=== PATIENT | female | born 1980 | race Hispanic/Latino ===

== ENCOUNTER → 2019-06-20 | Outpatient (CLI) | payer OTHER ==
[~2019-06-20] MED LIST: ABILIFY5 MG PO; BUPROPION HCL150 M2 PO; MULTI-VITAMIN1 EACH PO; NORCO 7.5-3251 EACH PO; PROZAC20 MG PO; VITAMIN B-121000 MCG PO; WELLBUTRIN SR100 MG PO
--- NOTE | 2019-06-20 16:17 | Diagnostic Imaging Report ---
Exam: Lumbar spine MRI without IV contrast History: Low back pain, lumbar spondylosis with radiculopathy. Comparison studies: None Technique: Sagittal and axial T2 , sagittal T1 and IR, axial spin density oblique, coronal T2. Intravenous contrast: None Findings: Number of lumbar vertebral bodies: 5. Alignment: Normal lordosis. No scoliosis. Soft tissues: No T2 hyperintense inflammatory changes. Paraspinal muscles: No signal abnormalities. Well-preserved. No atrophic changes Lower thoracic cord: Normal in signal and morphology. The tip of the conus is at T12-L1. Cauda equina: No masses. No arachnoiditis. Vertebrae: No compression fractures, infection or neoplasm. Degenerative changes: L1-L2: No abnormalities L2-L3: No abnormalities L3-L4: No abnormalities L4-L5: Symmetric disc bulge, thickened ligamentum flavum and mild facet arthrosis without significant canal or foraminal stenosis L5-S1: Moderately degenerated disc with loss of disc height and loss of T2 disc signal. Reactive degenerative endplate changes are present which are predominantly fatty-replaced with only minimal endplate edema. Minimal Grade 1 retrolisthesis of L5 on S1 with uncovered disc/disc osteophyte complex is with superimposed, superiorly migrated, 19 mm x 10 mm x 13 mm (SI x AP x TV) left subarticular disc extrusion/possible sequestered disc fragment which abuts the left L5 subarticular nerve root just as it enters the left L5-S1 neural foramina and posterior displaces the left S1 nerve root within the thecal. Disc osteophyte complex asymmetric to the right results in mild right foraminal stenosis. Patent left foramen IMPRESSION: Moderately degenerated L5-S1 disc with large superiorly migrated left subarticular disc extrusion/possible sequestered disc fragment which abuts the left L5 nerve root and posteriorly displaces the left S1 nerve root. Signed by: Dr. Matteo Gonzalez M.D. on 06/20/2019 4:13 PM
== END ==
LOC: MRI 06-04 14:40
PROVIDERS: ATTEND Specialist
DX: M47.27 Other spondylosis with radiculopathy, lumbosacral region (principal)
CPT/HCPCS: 72148

== ENCOUNTER 2019-06-28 07:55 | Observation (INO) | payer OTHER ==
[2019-06-26 15:22] LABS: BASOPHILS % 0.7 % (0.0-1.0); EOSINOPHILS # (AUTO) 0.1 (0.0-0.4); EOSINOPHILS % 2.1 % (0.0-6.0); HEMATOCRIT 37.5 % (34.2-44.1); HEMOGLOBIN 12.2 g/dL (12.0-16.0); LYMPHOCYTES # (AUTO) 1.8 (1.0-3.2); LYMPHOCYTES % 29.3 % (18.0-39.1); MEAN CORPUSCULAR HEMOGLOBIN 26.9 pg (28-32); MEAN CORPUSCULAR HGB CONC 32.5 g/dL (31-35); MEAN CORPUSCULAR VOLUME 82.8 fL (81-99); MONOCYTES # (AUTO) 0.4 (0.2-0.8); MONOCYTES % 5.8 % (4.4-11.3); NEUTROPHILS # (AUTO) 3.8 (2.1-6.9); NEUTROPHILS % 61.6 % (38.7-80.0); PLATELET COUNT 296 x10e3/uL (140-360); RED BLOOD COUNT 4.53 x10e6/uL (3.6-5.1); RED CELL DISTRIBUTION WIDTH 13.8 % (11.7-14.4)
[2019-06-26 15:31] LABS: INR 0.97; PROTHROMBIN TIME 13.4 seconds (11.9-14.5)
[2019-06-26 15:39] LABS: ANION GAP 15.8 mmol/L (8-16); BLOOD UREA NITROGEN 12 mg/dL (7-26); BUN/CREATININE RATIO 16 (6-25); CARBON DIOXIDE 21 mmol/L (22-29); CHLORIDE 102 mmol/L (98-107); CREATININE, SERUM 0.77 mg/dL (0.57-1.11); EST GLOMERULAR FILTRATION RATE > 60 ML/MIN (60-); GLUCOSE 79 mg/dL (74-118); POTASSIUM 3.8 mmol/L (3.5-5.1); SODIUM 135 mmol/L (136-145)
--- NOTE | 2019-06-26 16:01 | Diagnostic Imaging Report ---
EXAMINATION: CHEST 2 VIEWS INDICATION: Pre-operative COMPARISON: None FINDINGS: LINES/TUBES:None LUNGS:The lungs are well-inflated. No focal consolidation or pulmonary edema. PLEURA:No pleural effusion or pneumothorax. MEDIASTINUM:The cardiomediastinal silhouette appears normal in size and shape. BONES/SOFT TISSUES:No acute osseous injury. ABDOMEN:No free air under the diaphragm. IMPRESSION: No focal pneumonia or pulmonary edema. Signed by: Srikanth Muniz MD on 06/26/2019 3:58 PM
[~2019-06-28] VITALS: Ht 165.1 cm; Wt 92.5 kg
[~2019-06-28 07:55] MED LIST changes: +ACETAMINOPHEN 1000 MG/100 ML 100 ML IV ONE; -BUPROPION HCL150 M2 PO; +IBUPROFEN 800MG/ 250ML 250 ML IV ONE; +LIDOCAINE HCL (LTA) 4 ML SOLN ONE; -NORCO 7.5-3251 EACH PO
[2019-06-28] MEDS ORDERED: CEFAZOLIN SOD 1 GM/NS 50ML 100 ML IV ONE (08:25)
--- OUTSIDE RECORDS SUMMARY | 2019-06-28 08:32 | XMS REPORT ---
Author Author [facility] Address Unknown Phone Unavailable Care Team Providers Care Special Librarian Name Role Phone LOPEZ ANDERSON Unavailable Unavailable MINERVA BRUNSON Unavailable Unavailable Problems This patient has no known problems. Allergies, Adverse Reactions, Alerts This patient has no known allergies or adverse reactions. Medications This patient has no known medications. Results Test Description Test Time Test Comments Text Results Atomic Results Result Comments CHEST 2 VIEWS 2019-06-26 15:57:00 [place] [address] Patient Name: RAH MYERS MR #: [id number] : 1980 Age/Sex: 38/F Req #: [id number] Adm Physician: Ordered by: LOPEZ ANDERSON MD Report #: [id number] Location: OR Room/Bed: Procedure: [id number] DX/CHEST 2 VIEWS Exam Date: 06/26/19 Exam Time: 1521 REPORT STATUS: Signed EXAMINATION: CHEST 2 VIEWS INDICATION: Pre-operative COMPARISON: None FINDINGS: LINES/TUBES:None LUNGS:The lungs are well-inflated. No focal consolidation or pulmonary edema. PLEURA:No pleural effusion or pneumothorax. MEDIASTINUM:The cardiomediastinal silhouette appears normal in size and shape. BONES/SOFT TISSUES:No acute osseous injury. ABDOMEN:No free air under the diaphragm. IMPRESSION: No focal pneumonia or pulmonary edema. Signed by: Stephanie Tyson MD on 06/26/2019 3:58 PM Dictated By: STEPHANIE TYSON MD 57 Transcribed By: DARCY on 06/26/191557 COPY TO: LOPEZ ANDERSON MD MRI SPINE LUMBAR WO 2019-06-20 15:58:00 [place] [address] Patient Name: RAH MYERS MR #: [id number] : 1980 Age/Sex: 38/F Req #: [id number] Adm Physician: Ordered by: MINERVA BRUNSON MD Report #: [id number] Location: MRI Room/Bed: Procedure: [id number] MRI/MRI SPINE LUMBAR WO Exam Date: Exam Time: REPORT STATUS: Signed Exam: Lumbar spine MRI without IV contrast History: Low back pain, lumbar spondylosis with radiculopathy. Comparison studies: None Technique: Sagittal and axial T2 , sagittal T1 and IR, axial spin density oblique, coronal T2. Intravenous contrast: None Findings: Number of lumbar vertebral bodies: 5. Alignment: Normal lordosis. No scoliosis. Soft tissues: No T2 hyperintense inflammatory changes. Paraspinal muscles: No signal abnormalities. Well-preserved. No atrophic changes Lower thoracic cord: Normal in signal and morphology. The tip of the conus is at T12-L1. Cauda equina: No masses. No arachnoiditis. Vertebrae: No compression fractures, infection or neoplasm. Degenerative changes: L1-L2: No abnormalities L2-L3: No abnormalities L3-L4: No abnormalities L4-L5: Symmetric disc bulge, thickened ligamentum flavum and mild facet arthrosis without significant canal or foraminal stenosis L5-S1: Moderately degenerated disc with loss of disc height and loss of T2 disc signal. Reactive degenerative endplate changes are present which are predominantly fatty-replaced with only minimal endplate edema. Minimal Grade 1 retrolisthesis of L5 on S1 with uncovered disc/disc osteophyte complex is with superimposed, superiorly migrated, 19 mm x 10 mm x 13 mm (SI x AP x TV) left subarticular disc extrusion/possible sequestered disc fragment which abuts the left L5 subarticular nerve root just as it enters the left L5-S1 neural foramina and posterior displaces the left S1 nerve root within the thecal. Disc osteophyte complex asymmetric to the right results in mild right foraminal stenosis. Patent left foramen IMPRESSION: Moderately degenerated L5- S1 disc with large superiorly migrated left subarticular disc extrusion/possib le sequestered disc fragment which abuts the left L5 nerve root and posteriorly displaces the left S1 nerve root. Signed by: Dr. Minerva Gonzalez M.D. on 06/20/2019 4:13 PM Dictated By: MINERVA GONZALEZ MD [id number] Transcribed By: DARCY on 06/20/19 1613 COPY TO: MINERVA BRUNSON MD
[2019-06-28] MEDS ORDERED: BUPIVACAINE 0.5%/EPI 30 ML SDV INJ ONE (09:38)
[2019-06-28] MEDS ORDERED: THROMBIN FOR SOLN 5,000 UNIT VIAL ONE (09:38)
[2019-06-28] MEDS ORDERED: BACITRACIN 50,000 UNIT VIAL ONE (09:39)
[2019-06-28] MEDS: LACTATED RINGER'S 1,000 ML IV SCH (12:24)
[2019-06-28] MEDS ORDERED: ACETAMINOPHEN 325 MG TAB PO PRN (12:30)
[2019-06-28] MEDS ORDERED: HYDROMORPHONE 2MG/ML 2 MG/ML ML IV PRN (12:30)
[2019-06-28] MEDS ORDERED: ONDANSETRON HCL INJ 2MG/ML 2ML 2 MG/ML VIAL IV PRN (12:30)
[2019-06-28] MEDS ORDERED: MORPHINE SULFATE INJ 4 MG/ML INJ 1ML IM PRN (12:30)
[2019-06-28] MEDS ORDERED: MAGNESIUM/ALUMINUM/SIMETHICONE 30 ML UDC PO PRN (12:30)
[2019-06-28] MEDS ORDERED: CARISOPRODOL 350 MG TAB PO PRN (12:30)
[2019-06-28] MEDS ORDERED: ZOLPIDEM TARTRATE 5 MG TAB PO PRN (12:30)
[2019-06-28] MEDS ORDERED: PROMETHAZINE HCL (IM) 25 MG/ML VIAL IM PRN (12:30)
--- NOTE | 2019-06-28 14:01 | Operative Report ---
DATE OF PROCEDURE: 06/28/2019 SURGEON: Joaquin De Jesus MD PREOPERATIVE DIAGNOSIS: Left L5-S1 disk herniation with superior migration of extruded disk fragment with severe radiculopathy, M51.17. POSTOPERATIVE DIAGNOSIS: Left L5-S1 disk herniation with superior migration of extruded disk fragment with severe radiculopathy, M51.17. PROCEDURES: Left L5-S1 laminotomy, medial facetectomy, and microsurgical diskectomy, 5[address]. ANESTHESIA: General. INDICATIONS: The patient is a woman, who presents with a very large left L5-S1 disk herniation with substantial superior migration of the extruded disk fragment producing left L5 and S1 radiculopathies. She was in the operating room for microsurgical decompression of the L5 and S1 nerve roots. PROCEDURE IN DETAIL: After induction of anesthesia, the patient was placed on the operating table in prone position over Alexei frame. Lumbar region was prepped and draped in sterile fashion. A preoperative x-ray was obtained. A small midline incision was created, lumbar fascia was opened to the left of midline and a subperiosteal dissection was carried out to expose the left-sided L5 and S1 lamina and medial aspect of the facet joint. A second x-ray confirmed correct localization. The operating microscope was brought in. A high-speed drill equipped with hima bur was used to drill the inferior 2/3 of the lamina of L5 and the medial rim of the inferior articular process of L5. The ligamentum flavum was resected. The dural sac and the S1 traversing nerve root were exposed. The herniated disk material immediately came into view above the S1 nerve root and extending to the region of the axilla of the L5 nerve roots. The herniated disk material was mobilized with a micro ball probe and removed several large fragments of disk from the ventral epidural space until both the L5 and S1 nerve roots were fully exposed and decompressed. The opening into the annulus of the disk was slightly enlarged with a #11 blade and the loose contents of the L5-S1 disk were evacuated with a micro pituitary rongeur. Excellent decompression was thus achieved. The wound was copiously irrigated with bacitracin solution. Meticulous hemostasis was secured. Retractor was removed. The dura was overlaid with a piece of fat obtained from the subcutaneous compartment. The lumbar fascia was closed with 0 Vicryl suture. Subcutaneous layer was closed with 2-0 Vicryl sutures. The skin was closed with 3-0 Monocryl sutures in subcuticular fashion. Steri-Strips and dressing were applied. The patient was awakened, extubated, and taken to postanesthesia care unit in stable condition. No intraoperative complications were encountered. Estimated blood loss was 10 mL. Joaquin De Jesus MD PP/YASMIN /[id number]
[2019-06-28 16:30] VITALS: BP 131/89
[2019-06-28 17:14] VITALS: BP 131/89
[2019-06-28 17:18] VITALS: BP 131/89
[2019-06-28] MEDS: OXYCODONE/ACETAMINOPHEN 5-325 1 EACH TABLET PO PRN (17:37)
[2019-06-28] MEDS: CEFAZOLIN SOD 1 GM/NS 50ML 50 ML IV SCH (19:18)
[2019-06-28] MEDS ORDERED: MIDAZOLAM HCL 2 MG/2 ML VIAL ONE (19:43)
[2019-06-28] MEDS ORDERED: FENTANYL CITRATE/PF 100MCG/2 ML INJ ONE (19:43)
[2019-06-28 20:00] VITALS: BP 118/63
--- NOTE | 2019-06-28 20:00 | NUR ---
RECEIVED PT SITTING ON THE CHAIR . RT HAND 20G LR RUNNING AT 120CC/HR .CALL LIGHT WITH IN REACH DRESSING AT THE BACK .CONTINUE TO MONITOR
[2019-06-28] MEDS ORDERED: NEOSTIGMINE 5 MG/5ML SYR ONE (20:15)
[2019-06-28] MEDS ORDERED: PROPOFOL IV EMULSION 10 MG/ML 20 ML VIAL ONE (20:15)
[2019-06-28] MEDS ORDERED: DEXAMETHASONE SOD PHOS INJ 4 MG/ML VIAL ONE (20:15)
[2019-06-28] MEDS ORDERED: ONDANSETRON HCL INJ 2MG/ML 2ML 2 MG/ML VIAL ONE (20:15)
[2019-06-28] MEDS ORDERED: LIDOCAINE HCL 2% LOCAL INJ 5 ML SDV VIAL INJ ONE (20:15)
[2019-06-28] MEDS ORDERED: LIDOCAINE HCL 2% JELLY 5 ML TUBE ONE (20:15)
[2019-06-28] MEDS ORDERED: ROCURONIUM BROMIDE 10 MG/ML 5ML VIAL ONE (20:15)
[2019-06-28] MEDS ORDERED: GLYCOPYRROLATE INJ 1MG/ 5 ML SYR ONE (20:15)
[2019-06-28] MEDS ORDERED: SEVOFLURANE INHAL SOLN 250 ML PEN BTL ONE (20:15)
[2019-06-28 20:49] VITALS: BP 131/89
[2019-06-29] VITALS: BP 103/55
[2019-06-29] MEDS: OXYCODONE/ACETAMINOPHEN 5-325 1 EACH TABLET PO PRN (02:12)
[2019-06-29] MEDS: CEFAZOLIN SOD 1 GM/NS 50ML 50 ML IV SCH ×2 (03:05→10:41)
[2019-06-29 04:00] VITALS: BP 115/66
[2019-06-29] MEDS: LACTATED RINGER'S 1,000 ML IV SCH ×2 (05:04→05:20)
--- NOTE | 2019-06-29 06:17 | NUR ---
PT C/O BACK PAIN AND GIVEN ORDERED PAIN MEDICATION .CALL LIGHT WITH IN REACH .CONTINUE TO MONITOR
--- NOTE | 2019-06-29 07:12 | NUR ---
BEDSIDE REPORT GIVEN TO THE ON COMING NURSE
[2019-06-29] MEDS ORDERED: BUPROPION HCL150 M2 PO (07:35)
[2019-06-29 08:11] VITALS: BP 124/72
[2019-06-29 08:48] VITALS: BP 124/72
[2019-06-29] MEDS ORDERED: MULTIVITAMINS/MINERALS TAB PO SCH (09:00)
[2019-06-29] MEDS ORDERED: FLUOXETINE HCL 20 MG CAP PO SCH ×2 (09:00)
[2019-06-29] MEDS ORDERED: CYANOCOBALAMIN 1,000 MCG TAB PO SCH (09:00)
[2019-06-29] MEDS ORDERED: ARIPIPRAZOLE 5 MG TABLET PO SCH (09:00)
[2019-06-29] MEDS ORDERED: BUPROPION HCL PO SCH (09:00)
[2019-06-29] MEDS ORDERED: BUPROPION HCL 300 MG PO SCH (09:00)
[2019-06-29] MEDS ORDERED: BUPROPION HCL SR 150 MG TAB PO SCH (09:00)
[2019-06-29] MEDS ORDERED: NORCO 7.5-3251 EACH PO (11:25)
[2019-06-29 12:00] VITALS: BP 131/71
== END 2019-06-29 12:04 | disposition home or self-care (01) ==
LOC: OR 07:55 → PACU V 12:24 → MED/SURG 15:18
PROVIDERS: ADMIT Neurological Surgery; ATTEND Neurological Surgery
DX: M51.17 Intervertebral disc disorders with radiculopathy, lumbosacral region (principal); Z87.891 Personal history of nicotine dependence; Z01.810 Encounter for preprocedural cardiovascular examination; Z01.812 Encounter for preprocedural laboratory examination; Z01.811 Encounter for preprocedural respiratory examination
CPT/HCPCS: 36415; 63047; 71046; 72020; 80048; 81025; 85025; 85610; 85730; 86850; 86900; 88304; 93005; G0378 ×2; J0131; J0690 ×2; J1100; J1170; J2001 ×2; J2250; J2405 ×2; J2704; J3010; J3490; J7121 ×2

== ENCOUNTER 2019-07-23 11:00 | Outpatient (RCR) | payer OTHER ==
[~2019-07-23 11:00] MED LIST changes: -ACETAMINOPHEN 1000 MG/100 ML 100 ML IV ONE; +BUPROPION HCL150 M2 PO; -IBUPROFEN 800MG/ 250ML 250 ML IV ONE; -LIDOCAINE HCL (LTA) 4 ML SOLN ONE; +NORCO 7.5-3251 EACH PO
== END 2019-07-26 ==
LOC: PT 11:00
PROVIDERS: ATTEND Neurological Surgery
DX: M51.17 Intervertebral disc disorders with radiculopathy, lumbosacral region (principal); M53.86 Other specified dorsopathies, lumbar region; M62.81 Muscle weakness (generalized)

== ENCOUNTER 2019-08-15 13:56 | Outpatient (RCR) | payer OTHER | END 2019-08-25 | LOC: PT 13:56 | PROVIDERS: ATTEND Neurological Surgery | DX: M51.17 Intervertebral disc disorders with radiculopathy, lumbosacral region (principal); M62.81 Muscle weakness (generalized); M53.86 Other specified dorsopathies, lumbar region | CPT/HCPCS: 97139 ==